=== PATIENT | female | born 1960 | race African-American/Black ===

== ENCOUNTER 2017-09-16 12:43 | Emergency (ER) | payer OTHER ==
[~2017-09-16] VITALS: Ht 170.2 cm; Wt 63.5 kg
[2017-09-16 12:50] VITALS: BP 119/79
[2017-09-16] MEDS ORDERED: Ketorolac 60mg Inj IM ONE (13:30)
[2017-09-16 13:45] LABS: APPEARANCE,URINE CLEAR; BILIRUBIN, URINE NEGATIVE (NEGATIVE); COLOR,URINE PALE YELLOW; GLUCOSE, URINE (UA) NEGATIVE (NEGATIVE); KETONES,URINE NEGATIVE (NEGATIVE); LEUKOCYTE ESTERASE ,URINE 3+ (NEGATIVE); NITRITE,URINE NEGATIVE (NEGATIVE); PH,URINE 7 (4.5-8.0); PROTEIN,URINE NEGATIVE (NEGATIVE); UROBILINOGEN,URINE NORMAL MG/DL (0.0-1.0)
--- NOTE | 2017-09-16 13:57 | Emergency Room Report ---
History of Present Illness General Chief Complaint: Lower Back Pain or Injury Source: Patient, EMS Present Illness HPI This 57-year-old female brought in by EMS after reported fall. Patient noted have increased pain to her low back. Patient reported having fallen from standing position after slipping on water. This reports having pain to her low back . Patient reports having severe pain which did not radiate her extremities. Patient denies numbness or weakness. Allergies: Coded Allergies: No Known Allergies (Unverified , 09/16/17) Patient History Past Medical History: see triage record Last Menstrual Period: NA Reviewed Nursing Documentation: PMH: Agreed, PSxH: Agreed Nursing Documentation-PMH Past Medical History: No History, Except For Review of Systems All Other Systems: negative except mentioned in HPI Physical Exam Vital Signs Date Time Temp Pulse Resp B/P (MAP) Pulse Ox O2 Delivery O2 Flow Rate FiO2 09/16/17 12:38 98.6 87 18 119/79 98 Room Air 98.6 Sp02 EP Interpretation: reviewed, normal General Appearance: normal inspection, well appearing, no apparent distress, alert, GCS 15 Head: atraumatic ENT: normal ENT inspection, hearing grossly normal, normal voice Neck: normal inspection, full range of motion, supple, no bony tend Respiratory: normal inspection, lungs clear, normal breath sounds, no respiratory distress, no retraction, no wheezing Cardiovascular #1: regular rate, rhythm, no edema Gastrointestinal: normal inspection, normal bowel sounds, non tender, soft, no guarding, no hernia Genitourinary: no CVA tenderness Musculoskeletal: normal inspection, back normal, normal range of motion Neurologic: normal inspection, alert, oriented x3, responsive, 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 Differential diagnosis included was not limited to fracture, dislocation, contusion, sprain, disc herniation among others.Because of complexity of patient's case laboratory testing and imaging studies were ordered.Urinalysis showed evidence of urinary infection. Patient was given antibiotics. She was given prescription for medications for urinary tract infection.Urine drug screen was positive for cocaine. The patient is advised to follow up with primary care doctor in 1-2 days. Patient is advised to return if any worsening condition or if any changes in status that are concerning. This report is dictated with [employer] auto hauler software which may occasionally lead to discrepancies related to use of this software. Labs Test 09/16/17 13:35 Urine Color Pale yellow Urine Appearance Clear Urine pH 7 (4.5-8.0) Urine Specific [place] 1.005 (1.005-1.035) Urine Protein Negative (NEGATIVE) Urine Glucose (UA) Negative (NEGATIVE) Urine Ketones Negative (NEGATIVE) Urine Occult Blood 1+ (NEGATIVE) Urine Nitrite Negative (NEGATIVE) Urine Bilirubin Negative (NEGATIVE) Urine Urobilinogen Normal MG/DL (0.0-1.0) Urine Leukocyte Esterase 3+ (NEGATIVE) Urine RBC 0-2 /HPF (0 - 2) Urine WBC 10-15 /HPF (0 - 2) Urine Squamous Epithelial Cells Occasional /LPF Urine Bacteria Few /HPF (NONE) Urine Opiates Screen Negative (NEGATIVE) Urine Barbiturates Screen Negative (NEGATIVE) Phencyclidine (PCP) Screen Negative (NEGATIVE) Urine Amphetamines Screen Negative (NEGATIVE) Urine Benzodiazepines Screen Negative (NEGATIVE) Urine Cocaine Screen Positive (NEGATIVE) Urine Marijuana (THC) Screen Negative (NEGATIVE) Last Vital Signs Date Time Temp Pulse Resp B/P (MAP) Pulse Ox O2 Delivery O2 Flow Rate FiO2 09/16/17 12:50 98.6 87 18 119/79 98 Room Air 98.6 Status: improved Disposition: HOME, SELF-CARE Condition: Stable Scripts Acetaminophen (Tylenol) 325 Mg Tablet 650 MG ORAL Q6H Y for Prn Pain/Headache/Temp > 101, #30 TAB 0 Refills Prov: Raymond Ferreira 09/16/17 Cephalexin* (KEFLEX*) 500 Mg Capsule 500 MG ORAL Q6H, #28 CAP 0 Refills Prov: Raymond Ferreira 09/16/17 Raymond Ferreira Sep 16, 2017 13:57
[2017-09-16] MEDS ORDERED: Cephalexin 500mg cap ORAL ONE (14:30)
[2017-09-16] MEDS ORDERED: TYLENOL325 MG ORAL (15:01)
[2017-09-16] MEDS ORDERED: KEFLEX500 MG ORAL (15:01)
[2017-09-16 15:29] VITALS: BP 131/83
--- NOTE | 2017-09-17 08:42 | Diagnostic Imaging Report ---
Indications: Pain, status post fall Technique: Spiral acquisitions obtained through the lumbar spine. Multiplanar reconstructions were generated. No IV contrast utilized. Total dose length product 313.77 mGycm. CTDIvol(s) 10.54 mGy. Dose reduction achieved using automated exposure control Comparison: none Findings: Vertebral body heights are preserved. The disc spaces are preserved. The bony alignment is normal. No acute fractures. No dislocations. There is multilevel facet degeneration. And L2-3, L3-4, and L4-5, there is generalized circumferential annular bulge which does not significantly narrow the spinal canal or neural foramina. The remaining disc levels, no significant disc bulge or protrusion, spinal stenosis, or neural foraminal narrowing. The included extraspinal soft tissues are unremarkable. Impression: Mild degenerative changes, as described No acute bony trauma The CT scanner at [facility] is accredited by the [employer] and the scans are performed using protocols designed to limit radiation exposure to as low as reasonably achievable to attain images of sufficient resolution adequate for diagnostic evaluation.
== END 2017-09-16 15:29 | disposition home or self-care (01) ==
LOC: EDBD 12:43 → EMR 13:20
DX: N39.0 Urinary tract infection, site not specified (principal); M54.5 Low back pain
CPT/HCPCS: 72131; 80307; 81003; 87086; 87181; 96372; 99284

== ENCOUNTER 2018-11-16 11:22 | Emergency (ER) | payer OTHER ==
[~2018-11-16] VITALS: Ht 162.6 cm; Wt 59.0 kg
[2018-11-16 11:10] VITALS: BP 109/74
[~2018-11-16 11:22] MED LIST: KEFLEX500 MG ORAL; TYLENOL325 MG ORAL
[2018-11-16] MEDS ORDERED: Methocarbamol 750mg tab ORAL ONE (11:30)
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
[2018-11-16] MEDS ORDERED: IBUPROFEN600 MG ORAL (13:02)
[2018-11-16 13:59] VITALS: BP 116/78
== END 2018-11-16 14:00 | disposition home or self-care (01) ==
LOC: EDBD 11:22 → EMR 13:00
DX: M79.621 Pain in right upper arm (principal); M25.551 Pain in right hip; V43.62XA Car passenger injured in collision with other type car in traffic accident, initial encounter; Y92.410 Unspecified street and highway as the place of occurrence of the external cause; R45.1 Restlessness and agitation
CPT/HCPCS: 71045; 99284

== ENCOUNTER 2019-07-17 19:18 | Emergency (ER) | payer OTHER ==
[~2019-07-17] VITALS: Ht 170.2 cm; Wt 68.0 kg
[~2019-07-17 19:18] MED LIST changes: +IBUPROFEN600 MG ORAL
--- NOTE | 2019-07-17 19:40 | NUR ---
ED Nurse Note: received pt from triage, pt came to ED c/o flu like sx, pt states she has headache, generalized body ache and chills, cough with congestion, chest pain when cough. noted pt with dry cough. pt denies sob at this time. ptAA&ox4, gcs=15, skin warm to touch and dry, resp even and unlabored on RA, LS=diminished on bases, sinus tach on radiation monitor, o2 sat 99% on RA, vss, will cont monitor. pt advised to notify staff if need assist. safety measures in place.
--- NOTE | 2019-07-17 19:50 | NUR ---
ED Nurse Note: noted pt temp 101.1F oral, ERMD notified. will follow up with order.
--- NOTE | 2019-07-17 19:51 | Emergency Room Report ---
History of Present Illness General Chief Complaint: Flu Like Symptoms Source: Patient Present Illness HPI Patient is a 59-year-old female presents after increased cough and difficulty with breathing. She reports of increased productive cough. She reports having approximately 1/2 pack/day smoking. She reports of increased cough the past 2 to 3 days. Denies any vomiting or diarrhea. Reports having some generalized body pain and chills. Allergies: Coded Allergies: No Known Allergies (Unverified , 09/16/17) Patient History Now: No Reviewed Nursing Documentation: PMH: Agreed; PSxH: Agreed Review of Systems All Other Systems: negative except mentioned in HPI Physical Exam Vital Signs Date Time Temp Pulse Resp B/P (MAP) Pulse Ox O2 Delivery O2 Flow Rate FiO2 07/17/19 19:30 98.4 108 18 114/69 (84) 92 Room Air Sp02 EP Interpretation: reviewed, normal General Appearance: normal inspection, alert, Chronically Ill Head: atraumatic ENT: normal ENT inspection, hearing grossly normal, normal voice Neck: normal inspection, full range of motion, supple, no bony tend Respiratory: normal inspection, no respiratory distress, no retraction, wheezing Cardiovascular #1: regular rate, rhythm, edema Gastrointestinal: normal inspection, normal bowel sounds, non tender, soft, no guarding, no hernia Genitourinary: no CVA tenderness Musculoskeletal: normal inspection, back normal, normal range of motion Neurologic: alert, motor strength/tone normal, 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 Differential diagnosis include was not limited to pneumonia, bronchitis, COPD exacerbation among others. Because of complexity of patient's case laboratory tests and imaging studies were ordered. Patient was noted to have some fever. Laboratory testing showed abnormal elevated white blood count. Patient was given breathing treatments. Blood cultures were obtained. Patient's initial lactic acid level was noted to be somewhat elevated. She started on IV fluids. Chest x-ray 1 view interpreted by me showed normal cardiac size with left-sided infiltrate.Patient given IV magnesium as well as IV antibiotics. Patient will likely require inpatient management due to lactic acidosis as well as fever.Patient was discussed with who agreed except the patient to transfer to [facility] [place]. Labs Test 07/17/19 20:00 White Blood Count 19.2 K/UL (4.8-10.8) Red Blood Count 4.78 M/UL (4.20-5.40) Hemoglobin 14.0 G/DL (12.0-16.0) Hematocrit 43.7 % (37.0-47.0) Mean Corpuscular Volume 91 FL (80-99) Mean Corpuscular Hemoglobin 29.3 PG (27.0-31.0) Mean Corpuscular Hemoglobin Concent 32.1 G/DL (32.0-36.0) Red Cell Distribution Width 12.0 % (11.6-14.8) Platelet Count 325 K/UL (150-450) Mean Platelet Volume 5.2 FL (6.5-10.1) Neutrophils (%) (Auto) 83.9 % (45.0-75.0) Lymphocytes (%) (Auto) 9.4 % (20.0-45.0) Monocytes (%) (Auto) 4.9 % (1.0-10.0) Eosinophils (%) (Auto) 0.7 % (0.0-3.0) Basophils (%) (Auto) 1.1 % (0.0-2.0) Sodium Level 141 MMOL/L (136-145) Potassium Level 3.7 MMOL/L (3.5-5.1) Chloride Level 102 MMOL/L (98-107) Carbon Dioxide Level 24 MMOL/L (21-32) Anion Gap 15 mmol/L (5-15) Blood Urea Nitrogen 13 mg/dL (7-18) Creatinine 1.0 MG/DL (0.55-1.30) Estimat Glomerular Filtration Rate > 60 mL/min (>60) Glucose Level 69 MG/DL (74-106) Lactic Acid Level 5.20 mmol/L (0.4-2.0) Calcium Level 9.8 MG/DL (8.5-10.1) Total Bilirubin 0.8 MG/DL (0.2-1.0) Aspartate Amino Transf (AST/SGOT) 27 U/L (15-37) Alanine Aminotransferase (ALT/SGPT) 31 U/L (12-78) Alkaline Phosphatase 115 U/L (46-116) Total Creatine Kinase 156 U/L (26-308) Creatine Kinase MB 3.6 NG/ML (0.0-3.6) Creatine Kinase MB Relative Index 2.3 Troponin I 0.003 ng/mL (0.000-0.056) Total Protein 8.6 G/DL (6.4-8.2) Albumin 4.1 G/DL (3.4-5.0) Globulin 4.5 g/dL Albumin/Globulin Ratio 0.9 (1.0-2.7) EKG Diagnostic Results Rate: tachycardiac Rhythm: NSR ST Segments: other - inferior q waves. Last Vital Signs Date Time Temp Pulse Resp B/P (MAP) Pulse Ox O2 Delivery O2 Flow Rate FiO2 07/17/19 19:30 98.4 108 18 114/69 (84) 92 Room Air Status: improved Disposition: ADMITTED INPATIENT Condition: Stable Referrals: Chapito BENITEZ,REFERRING (PCP) Raymond Ferreira MD Jul 17, 2019 19:51
[2019-07-17] MEDS ORDERED: Albuterol/Ipratropium 3ml neb HHN ONE (20:00)
[2019-07-17] MEDS ORDERED: Acetaminophen 500mg (ES) tab ORAL ONE (20:00)
[2019-07-17] MEDS ORDERED: cefTRIAXone 1 GM in NS 55 ML IVPB ONE (20:00)
--- NOTE | 2019-07-17 20:21 | NUR ---
ED Nurse Note: lab specimens collected and sent. pt provided with pillow, will cont monitor. safety measures in place.
[2019-07-17 20:25] VITALS: BP 112/81
[2019-07-17 20:30] LABS: HEMATOCRIT 43.7 % (37.0-47.0); MEAN CORPUSCULAR VOLUME 91 FL (80-99); PLATELET COUNT 325 K/UL (150-450); RED BLOOD COUNT 4.78 M/UL (4.20-5.40); WHITE BLOOD COUNT 19.2 K/UL (4.8-10.8)
[2019-07-17 20:42] LABS: LYMPHOCYTES % (AUTO) 9.4 % (20.0-45.0); MONOCYTES % (AUTO) 4.9 % (1.0-10.0); NEUTROPHILS % (AUTO) 83.9 % (45.0-75.0)
[2019-07-17 20:43] LABS: BASOPHILS % (AUTO) 1.1 % (0.0-2.0); EOSINOPHILS % (AUTO) 0.7 % (0.0-3.0)
--- NOTE | 2019-07-17 21:00 | NUR ---
ED Nurse Note: pt given socks, pt req food, verified w/ERMD, pt give sandwich and water. will cont monitor.
[2019-07-17 21:08] LABS: ANION GAP 15 mmol/L (5-15); BLOOD UREA NITROGEN 13 mg/dL (7-18); CALCIUM 9.8 MG/DL (8.5-10.1); CARBON DIOXIDE 24 MMOL/L (21-32); CHLORIDE 102 MMOL/L (98-107); POTASSIUM 3.7 MMOL/L (3.5-5.1); SODIUM 141 MMOL/L (136-145)
[2019-07-17] MEDS ORDERED: Azithromycin 500 MG in D5W 275 ML IVPB ONE (21:15)
[2019-07-17 21:21] LABS: ALANINE AMINOTRANSFERASE 31 U/L (12-78); ALBUMIN 4.1 G/DL (3.4-5.0); ALBUMIN/GLOBULIN RATIO 0.9 (1.0-2.7); ALKALINE PHOSPHATASE 115 U/L (46-116); ASPARTATE AMINO TRANSFERASE 27 U/L (15-37); BILIRUBIN,TOTAL 0.8 MG/DL (0.2-1.0); CKMB 3.6 NG/ML (0.0-3.6); CREATINE KINASE 156 U/L (26-308)
--- NOTE | 2019-07-17 21:25 | NUR ---
ED Nurse Note: per ERMD order, azithromycin withheld at this time due to pt's EKG -QT prolongation, start mag sulfate 1g(see EMAR) and administer after.
[2019-07-17 21:35] LABS: APPEARANCE,URINE CLEAR; BILIRUBIN, URINE NEGATIVE (NEGATIVE); COLOR,URINE PALE YELLOW; GLUCOSE, URINE (UA) NEGATIVE (NEGATIVE); KETONES,URINE NEGATIVE (NEGATIVE); LEUKOCYTE ESTERASE ,URINE 1+ (NEGATIVE); NITRITE,URINE POSITIVE (NEGATIVE); PH,URINE 5 (4.5-8.0); PROTEIN,URINE 1+ (NEGATIVE); UROBILINOGEN,URINE NORMAL MG/DL (0.0-1.0)
[2019-07-17 21:42] VITALS: BP 111/57
--- NOTE | 2019-07-17 22:25 | NUR ---
Face sheet,EKG,MD dictation and clinicals faxed to [phone] as requested.
--- NOTE | 2019-07-17 22:26 | NUR ---
ED Nurse Note: azithromycin d/c per ERMD. medication wasted.
--- NOTE | 2019-07-17 22:35 | NUR ---
ED Nurse Note: magnesium -lab add on order received from [facility] and contacted lab.
[2019-07-17 22:42] VITALS: BP_SYST 111; BP_SYST 92; BP_DIAS 53; BP_DIAS 57
--- NOTE | 2019-07-17 22:44 | NUR ---
ED Nurse Note: Report given to KAVITHA Clemente from [facility].
--- NOTE | 2019-07-17 22:59 | NUR ---
ED Nurse Note: EMS at the bedside for transport, report given along with summary of care, pt vss, sinus tach on the monitor, iv fluids running, second bag of mag sulfate withheld at this time due to pt getting transferred to other facility. all belongings endorsed to EMS. pt left accompanied by ambulance personnel.
[2019-07-17 23:01] VITALS: BP 92/53
--- NOTE | 2019-07-18 12:30 | Diagnostic Imaging Report ---
Indication: Reason For Exam: SOB Technique: One view of the chest Comparison: 11/16/2018 Findings: Interim development of retrocardiac consolidation. Lungs pleural spaces are otherwise clear. The heart size is normal. Impression: Retrocardiac consolidation, suspect pneumonia. Correlate with clinical findings
== END 2019-07-17 23:01 | disposition other institution (70) ==
LOC: EMR 19:42
DX: J18.9 Pneumonia, unspecified organism (principal); A41.9 Sepsis, unspecified organism; J44.9 Chronic obstructive pulmonary disease, unspecified; F17.200 Nicotine dependence, unspecified, uncomplicated
CPT/HCPCS: 36415; 71045; 80053; 81003; 82550; 82553; 83605; 83735; 84484; 85025; 86710; 87040; 87086; 93005; 94640; 96361; 96365; J0456; J0696; J7030; J7512; Z7502; 99284; J7620